=== PATIENT | female | born 1980 | race Caucasian/White ===

== ENCOUNTER 2017-12-01 02:59 | Emergency (ER) | payer OTHER ==
[~2017-12-01] VITALS: Ht 165.1 cm; Wt 74.0 kg
[~2017-12-01 02:59] MED LIST: CEPH500C3 PO; PARO12.5CR PO
[2017-12-01 03:01] VITALS: BP 133/83; PULSE 91; RESP 20; TEMP 97.3; O2SAT 99
[2017-12-01] MEDS ORDERED: BUPR150XL PO (03:09)
[2017-12-01] MEDS ORDERED: NAPR500T2 PO (03:09)
[2017-12-01] MEDS ORDERED: LEXA20TA PO (03:09)
[2017-12-01] MEDS ORDERED: LINA290C PO (03:09)
== END 2017-12-01 05:30 | disposition left against medical advice (07) ==
LOC: NED 02:59
DX: R10.30 Lower abdominal pain, unspecified (principal)
CPT/HCPCS: 99281

== ENCOUNTER 2018-02-13 07:53 | Emergency (ER) | payer OTHER ==
[~2018-02-13] VITALS: Ht 165.1 cm; Wt 75.0 kg
[~2018-02-13 07:53] MED LIST changes: +BUPR150XL PO; +LEXA20TA PO; +LINA290C PO; +NAPR500T2 PO
[2018-02-13 07:55] VITALS: BP 108/65; PULSE 71; RESP 18; TEMP 97.9; O2SAT 99
--- NOTE | 2018-02-13 08:06 | PD ---
HPI Chief Complaint: Flank/Kidney Pain Time Seen by Provider: 07:59 Travel History International Travel<30 days: No Contact w/Intl Traveler<30days: No Traveled to known affect area: No History of Present Illness HPI Patient comes in complaining of left flank pain radiating to her lower abdomen, and so has noted some hematuria as well. Onset over the last 2 days, worsening over the last 3 hours. Patient denies any alleviating or aggravating factors. Patient also denies any associated factors such as fever, rash, frequency/ urgency/diarrhea vomiting Allergy to Demerol Past medical history significant for migraine, IBS constipation, cholecystectomy , ablation [employer], arthritis, depression, and kidney stones PFSH Past Medical History Hx Anticoagulant Therapy: No Arthritis: Yes Depression: Yes Cardiovascular Problems: No Chemotherapy: No Cerebrovascular Accident: No Diabetes: No Gastrointestinal Disorders: Yes (IBS, constipation) Respiratory: No Migraines: Yes ?: Not LMP: 2010 Past Surgical History Cholecystectomy: Yes Gynecologic Surgery: Yes (ablation) Hysterectomy: No Social History Alcohol Use: No Tobacco Use: No Substance Use: No Allergies-Medications (Allergen,Severity, Reaction): Coded Allergies: meperidine (Unverified Allergy, Unknown, 12/01/17) Reported Meds & Prescriptions Reported Meds & Active Scripts Active Keflex (Cephalexin Monohydrate) 500 Mg Cap 500 Mg PO Q8 Reported Wellbutrin Xl 24 HR (Bupropion HCl) 150 Mg Tab 150 Mg PO DAILY Lexapro (Escitalopram Oxalate) 20 Mg Tab 20 Mg PO DAILY Linzess (Linaclotide) 290 Mcg Cap 290 Mcg PO DAILY Naproxen 500 Mg Tab 500 Mg PO BID Paxil 12.5 Mg Tab Cr (Paroxetine HCl) 12.5 Mg Tabcr 12.5 Mg PO DAILY Review of Systems General / Constitutional: No: Fever Eyes: No: Visual changes HENT: No: Headaches Cardiovascular: No: Chest Pain or Discomfort Respiratory: No: Shortness of Breath Gastrointestinal: No: Abdominal Pain Genitourinary: Positive: Flank Pain Musculoskeletal: No: Pain Skin: No Rash Neurologic: No: Weakness Psychiatric: No: Depression Endocrine: No: Polydipsia Hematologic/Lymphatic: No: Easy Bruising Physical Exam Narrative GENERAL: SKIN: Warm and dry. HEAD: Atraumatic. Normocephalic. EYES: Pupils equal and round. No scleral icterus. No injection or drainage. ENT: No nasal bleeding or discharge. Mucous membranes pink and moist. NECK: Trachea midline. No JVD. CARDIOVASCULAR: Regular rate and rhythm. RESPIRATORY: No accessory muscle use. Clear to auscultation. Breath sounds equal bilaterally. GASTROINTESTINAL: Abdomen soft, mild suprapubic tenderness to percussion, nondistended. MUSCULOSKELETAL: Extremities without clubbing, cyanosis, or edema. No obvious deformities. NEUROLOGICAL: Awake and alert. No obvious cranial nerve deficits. Motor grossly within normal limits. Five out of 5 muscle strength in the arms and legs. Normal speech. PSYCHIATRIC: Appropriate mood and affect; insight and judgment normal. Data Data Last Documented VS Vital Signs Date Time Temp Pulse Resp B/P (MAP) Pulse Ox O2 Delivery O2 Flow Rate FiO2 02/13/18 07:55 97.9 71 18 108/65 (79) 99 Orders Orders Complete Blood Count With Diff (02/13/18 08:21) Comprehensive Metabolic Panel (02/13/18 08:21) Urinalysis - C+S If Indicated (02/13/18 08:21) Ecg Monitoring (02/13/18 08:21) Iv Access Insert/Monitor (02/13/18 08:21) Ketorolac Inj (Toradol Inj) (02/13/18 08:30) Sodium Chloride 0.9% Flush (Ns Flush) (02/13/18 08:30) Sodium Chlor 0.9% 1000 Ml Inj (Ns 1000 M (02/13/18 08:21) Ondansetron Odt (Zofran Odt) (02/13/18 08:30) Ct Abd/Pel W/O Iv Contrast (02/13/18 08:22) Levofloxacin (Levaquin) (02/13/18 10:15) Labs Laboratory Tests Test 02/13/18 08:24 02/13/18 08:59 White Blood Count 7.6 TH/MM3 Red Blood Count 5.16 MIL/MM3 Hemoglobin 13.6 GM/DL Hematocrit 40.8 % Mean Corpuscular Volume 79.1 FL Mean Corpuscular Hemoglobin 26.3 PG Mean Corpuscular Hemoglobin Concent 33.2 % Red Cell Distribution Width 15.7 % Platelet Count 279 TH/MM3 Mean Platelet Volume 10.0 FL Neutrophils (%) (Auto) 65.0 % Lymphocytes (%) (Auto) 26.6 % Monocytes (%) (Auto) 6.0 % Eosinophils (%) (Auto) 1.5 % Basophils (%) (Auto) 0.9 % Neutrophils # (Auto) 4.9 TH/MM3 Lymphocytes # (Auto) 2.0 TH/MM3 Monocytes # (Auto) 0.5 TH/MM3 Eosinophils # (Auto) 0.1 TH/MM3 Basophils # (Auto) 0.1 TH/MM3 CBC Comment AUTO DIFF Differential Comment AUTO DIFF CONFIRMED Blood Urea Nitrogen 10 MG/DL Creatinine 1.13 MG/DL Random Glucose 113 MG/DL Total Protein 7.6 GM/DL Albumin 3.4 GM/DL Calcium Level 8.5 MG/DL Alkaline Phosphatase 89 U/L Aspartate Amino Transf (AST/SGOT) 39 U/L Alanine Aminotransferase (ALT/SGPT) 26 U/L Total Bilirubin 0.4 MG/DL Sodium Level 140 MEQ/L Potassium Level 4.2 MEQ/L Chloride Level 112 MEQ/L Carbon Dioxide Level 19.3 MEQ/L Anion Gap 9 MEQ/L Estimat Glomerular Filtration Rate 54 ML/MIN Urine Color YELLOW Urine Turbidity HAZY Urine pH 6.5 Urine Specific [place] 1.022 Urine Protein TRACE mg/dL Urine Glucose (UA) NEG mg/dL Urine Ketones NEG mg/dL Urine Occult Blood MOD Urine Nitrite NEG Urine Bilirubin NEG Urine Urobilinogen LESS THAN 2.0 MG/DL Urine Leukocyte Esterase LARGE Urine RBC 2 /hpf Urine WBC 8 /hpf Urine Squamous Epithelial Cells 4 /hpf Urine Bacteria FEW /hpf Urine Mucus MANY /lpf Microscopic Urinalysis Comment CULT NOT INDICATED MDM Medical Decision Making Medical Screen Exam Complete: Yes Emergency Medical Condition: Yes Medical Record Reviewed: Yes Differential Diagnosis Kidney stones versus right pyelonephritis versus UTI versus a sending cystitis versus colitis versus diverticulitis Narrative Course CBC shows no leukocytosis, no anemia, normal platelet count, no left shift Electrolytes are all within normal limits the exception of creatinine 1.13 with GFR 54, normal liver functions CT abdomen pelvis read by radiologist as no inflammatory changes seen within the abdomen or pelvis, no renal or ureteral calculi identified Diagnosis Primary Impression: Ascending cystitis Patient Instructions: General Instructions, Urinary Tract Infection in Women ( ED) Scripts Ondansetron Odt (Zofran Odt) 4 Mg Tab 4 MG SL Q6HR Y for Nausea/Vomiting, #14 TAB 0 Refills Prov: Isma Ruiz MD 02/13/18 Ketorolac (Ketorolac) 10 Mg Tab 10 MG PO TID Y for Pain Management, #12 TAB 0 Refills Prov: Isma Ruiz MD 02/13/18 Ciprofloxacin (Cipro) 500 Mg Tab 500 MG PO BID for Infection for 10 Days, #20 TAB 0 Refills Prov: Isma Ruiz MD 02/13/18 Disposition: 01 DISCHARGE HOME Condition: Stable Isma Ruiz MD Feb 13, 2018 08:05
[2018-02-13] MEDS ORDERED: SODIUM CHLOR 0.9% 1000 ML INJ 1,000 ML IV ONE (08:21)
[2018-02-13] MEDS ORDERED: KETOROLAC TROMETHAMINE 30 MG/ML (IVP) VIAL IV PUSH ONE (08:30)
[2018-02-13] MEDS ORDERED: SODIUM CHLORIDE 0.9% FLUSH 10 ML FLUSH IVF PRN (08:30)
[2018-02-13] MEDS ORDERED: ONDANSETRON ODT 4 MG TAB PO ONE (08:30)
[2018-02-13 08:35] LABS: AUTOMATED NEUTROPHIL # 4.9 TH/MM3 (1.8-7.7); BASOPHIL # 0.1 TH/MM3 (0-0.2); BASOPHIL % 0.9 % (0.0-2.0); EOSINOPHIL # 0.1 TH/MM3 (0-0.4); EOSINOPHIL % 1.5 % (0.0-4.0); HEMATOCRIT 40.8 % (35.0-46.0); HEMOGLOBIN 13.6 GM/DL (11.6-15.3); LYMPH % 26.6 % (9.0-44.0); MEAN CELL VOLUME 79.1 FL (80.0-100.0); MEAN CORPUSCULAR HEMOGLOBIN 26.3 PG (27.0-34.0); MEAN CORPUSCULAR HGB CONC 33.2 % (32.0-36.0); MONOCYTE # 0.5 TH/MM3 (0-0.9); PLATELET COUNT 279 TH/MM3 (150-450); RED BLOOD COUNT 5.16 MIL/MM3 (4.00-5.30); RED CELL DISTRIBUTION WIDTH 15.7 % (11.6-17.2); WHITE BLOOD COUNT 7.6 TH/MM3 (4.0-11.0)
--- NOTE | 2018-02-13 08:46 | RADRPT ---
EXAM DATE: 02/13/2018 8:42 AM EDT AGE/SEX: 37 years / Female INDICATIONS: Left flank pain for 2 days with history of renal stones. CLINICAL DATA: This is the patient's initial encounter. Patient reports that signs and symptoms have been present for 2 days and indicates a pain score of 5/10. MEDICAL/SURGICAL HISTORY: Renal calculi. Cholecystectomy. endometrial ablation RADIATION DOSE: 7.42 CTDI (mGy) COMPARISON: No prior exams available for comparison. TECHNIQUE: Multiple contiguous axial images were obtained through the abdomen. Images were obtained using multiple row detector helical technique. Using dose reduction techniques, radiation dose was ke pt as low as reasonably achievable to obtain optimal diagnostic quality images. FINDINGS: Lung bases are clear. Osseous structures are intact. Visualized portions of the liver, spleen unremar kable. Adrenals, pancreas, stomach, bilateral kidneys are unremarkable. No hydronephrosis or nephroli thiasis. There are no ureteral calculi seen. The bladder is unremarkable. Uterus and ovaries are unre markable. There are phleboliths in the pelvis. Small bowel, large bowel and appendix are normal. Ther e is no adenopathy or aneurysm. CONCLUSION: 1. There are no inflammatory changes seen within the abdomen or pelvis. 2. No renal or ureteral calculi are identified. Electronically signed by: Dannie Hernández MD 02/13/2018 8:44 AM EDT
[2018-02-13 08:52] LABS: ALKALINE PHOSPHATASE 89 U/L (45-117); BLOOD UREA NITROGEN 10 MG/DL (7-18); TOTAL BILIRUBIN ADULT 0.4 MG/DL (0.2-1.0); TOTAL PROTEIN 7.6 GM/DL (6.4-8.2)
[2018-02-13 08:59] LABS: ALBUMIN 3.4 GM/DL (3.4-5.0); ALT (GPT) 26 U/L (10-53); BICARBONATE 19.3 MEQ/L (21.0-32.0); CALCIUM 8.5 MG/DL (8.5-10.1); CHLORIDE 112 MEQ/L (98-107); CREATININE 1.13 MG/DL (0.50-1.00); GLOMERULAR FILTRATION RATE 54 ML/MIN (>89); GLUCOSE,RANDOM 113 MG/DL (74-106); SODIUM (NA) 140 MEQ/L (136-145)
[2018-02-13 09:00] LABS: AST (GOT) 39 U/L (15-37)
[2018-02-13 09:23] LABS: BACTERIA, URINE FEW /hpf; BILIRUBIN, URINE NEG (NEG); BLOOD, URINE MOD (NEG); GLUCOSE,URINE NEG (NEG); KETONE, URINE NEG (NEG); MUCUS URINE MANY /lpf (OCC); NITRITE,URINE NEG (NEG); PH, URINE 6.5 (5.0-8.5); SQUAMOUS EPITHELIAL CELL URINE 4 /hpf (0-5); URINE COLOR YELLOW (YELLW/STRAW); URINE LEUKOCYTE ESTERASE LARGE (NEG)
[2018-02-13] MEDS ORDERED: LEVOFLOXACIN 750 MG TAB PO ONE (10:15)
[2018-02-13] MEDS ORDERED: KETO10 PO (10:52)
[2018-02-13] MEDS ORDERED: ZOFR4TAB3 SL (10:52)
[2018-02-13] MEDS ORDERED: CIPR-9 PO (10:52)
== END 2018-02-13 11:31 | disposition home or self-care (01) ==
LOC: NEPE 07:53
DX: N30.90 Cystitis, unspecified without hematuria (principal); F32.9 Major depressive disorder, single episode, unspecified; M19.90 Unspecified osteoarthritis, unspecified site; Z87.442 Personal history of urinary calculi; Z88.8 Allergy status to other drugs, medicaments and biological substances; Z79.899 Other long term (current) drug therapy
CPT/HCPCS: 74176; 80053; 81001; 84703; 85025; 96361; 96374; 99284; J1885; J7030

== ENCOUNTER 2018-03-01 12:22 | Emergency (ER) | payer BC, OTHER ==
[~2018-03-01] VITALS: Ht 165.1 cm; Wt 74.0 kg
[~2018-03-01 12:22] MED LIST changes: +CIPR-9 PO; +KETO10 PO; +ZOFR4TAB3 SL
[2018-03-01 12:25] VITALS: BP 119/76; PULSE 76; RESP 18; TEMP 98.1; O2SAT 99
[2018-03-01] MEDS ORDERED: CLOT1CRE TOPICAL (13:34)
[2018-03-01] MEDS ORDERED: BACT800T5 PO (13:34)
--- NOTE | 2018-03-01 13:34 | PD ---
HPI Chief Complaint: Cold / Flu Symptoms Time Seen by Provider: 13:21 Travel History International Travel<30 days: No Contact w/Intl Traveler<30days: No Traveled to known affect area: No History of Present Illness HPI 37-year-old female presents to the emergency department with complaint of a sore throat since Wednesday. Denies lump in throat, difficulty swallowing, unusual drooling. Reports painful swallowing. No known fever. Says she is at the [place] on and off since Wednesday. Reports cough, nasal congestion and right ear pain also. Denies chest tightness, shortness of breath, wheezing. Denies vomiting. Has been taking ibuprofen and Tylenol Cold and flu with some relief of symptoms. Aggravated by swallowing. Symptoms are mild to moderate in severity. Primary care provider is Tanja mahan. Allergies to Demerol. History of arthritis. Has no other medical complaints. No other modifying factors or associated signs and symptoms. PFSH Past Medical History Hx Anticoagulant Therapy: No Arthritis: Yes Depression: Yes Cardiovascular Problems: No Chemotherapy: No Cerebrovascular Accident: No Diabetes: No Gastrointestinal Disorders: Yes (IBS, constipation) Genitourinary: Yes (ovarian cyst) Kidney Stones: Yes Respiratory: No Migraines: Yes ?: Unknown LMP: 7 years ago Past Surgical History Cholecystectomy: Yes Gynecologic Surgery: Yes (ablation) Hysterectomy: No Social History Alcohol Use: No Tobacco Use: No Substance Use: No Allergies-Medications (Allergen,Severity, Reaction): Coded Allergies: meperidine (Unverified Allergy, Unknown, 03/01/18) Reported Meds & Prescriptions Reported Meds & Active Scripts Active Magic Mouthwash Pediatric/Adult Liq (Lidocaine/Diphenhydr/Alum/Mg/Simeth) 60 Ml Susp 5 Ml SWISH-SWAL Q3HR PRN Each 5mL contains: Diphenydramine 4.5mg, Viscous Lidocaine 2% 10mg, Maalox Advanced Regular Strength 2.7ml Diflucan (Fluconazole) 150 Mg Tab 150 Mg PO ONCE Amoxicillin 500 Mg Cap 500 Mg PO BID 10 Days Zofran Odt (Ondansetron Odt) 4 Mg Tab 4 Mg SL Q6HR PRN Ketorolac (Ketorolac Tromethamine) 10 Mg Tab 10 Mg PO TID PRN Cipro (Ciprofloxacin HCl) 500 Mg Tab 500 Mg PO BID 10 Days Keflex (Cephalexin Monohydrate) 500 Mg Cap 500 Mg PO Q8 Reported Wellbutrin Xl 24 HR (Bupropion HCl) 150 Mg Tab 150 Mg PO DAILY Lexapro (Escitalopram Oxalate) 20 Mg Tab 20 Mg PO DAILY Linzess (Linaclotide) 290 Mcg Cap 290 Mcg PO DAILY Naproxen 500 Mg Tab 500 Mg PO BID Paxil 12.5 Mg Tab Cr (Paroxetine HCl) 12.5 Mg Tabcr 12.5 Mg PO DAILY Review of Systems Except as stated in HPI: all other systems reviewed are Neg Physical Exam Narrative GENERAL: Well-nourished, well-developed female patient, in no acute distress; afebrile, nontoxic-appearing SKIN: Warm and dry. No rash. HEAD: Atraumatic. Normocephalic. EYES: Pupils equal and round at 3 mm with brisk reaction. No scleral icterus. No injection or drainage. PERRLA. ENT: Mucosa pink and dry. Pharynx with 2+ tonsils; with erythema, exudate, and edema. No uvular edema. No uvular, palatal, or tonsillar deviation. Airway patent. Voice is hoarse. EARS: Bilateral pinnae and external canals appear within normal limits. Bilateral tympanic membranes without erythema, dullness or perforation.. NECK: Trachea midline. Anterior cervical lymphadenopathy and tenderness. CARDIOVASCULAR: Regular rate and rhythm. No murmur appreciated. RESPIRATORY: No accessory muscle use. Clear to auscultation. Breath sounds equal bilaterally. GASTROINTESTINAL: Flat. MUSCULOSKELETAL: No obvious deformities. No clubbing. No cyanosis. No edema. NEUROLOGICAL: Awake and alert. Oriented 3. No obvious cranial nerve deficits. Motor grossly within normal limits. Normal speech. Moves all extremities. PSYCHIATRIC: Appropriate mood and affect; insight and judgment normal. Data Data Last Documented VS Vital Signs Date Time Temp Pulse Resp B/P (MAP) Pulse Ox O2 Delivery O2 Flow Rate FiO2 03/01/18 12:25 98.1 76 18 119/76 (90) 99 Orders Orders Ed Discharge Order (03/01/18 13:46) [facility] Medical Decision Making Medical Screen Exam Complete: Yes Emergency Medical Condition: Yes Medical Record Reviewed: Yes Differential Diagnosis Strep pharyngitis, exudative pharyngitis, viral illness, less likely peritonsillar abscess Narrative Course 37-year-old female physical exam consistent with exudative pharyngitis. Amoxicillin, Magic mouthwash prescribed for home. Patient states she gets yeast infections from taking antibiotics. Diflucan prescribed for home also. Instructed patient to follow up with primary care provider. Patient verbalizes understanding and agreement with treatment plan. Patient is medically cleared and stable for discharge. Discussed reasons to return to the emergency department. Patient agrees with treatment plan. The patients vital signs are stable and the patient is stable for outpatient follow-up and treatment. Patient discharged home, stable and in no acute distress. Diagnosis Primary Impression: Exudative pharyngitis Referrals: Primary Care Physician Departure Forms: Tests/Procedures, Work Release Enter return to work date: Mar 03, 2018 Additional Instructions: Take Antibiotics as prescribed and complete full course of antibiotics Throw away and change your toothbrush 24 hours after starting antibiotics Get plenty of sleep/rest Rest your voice Drink plenty of fluids to prevent dehydration Use warm saltwater gargles to soothe throat pain Use an air humidifier/turn off ceiling fans Use throat lozenges as needed for sore throat Use ibuprofen or acetaminophen as needed to relieve pain and fever Follow-up with your primary care provider within 2-4 days Return immediately to the emergency department with worsening of symptoms Med/Other Pt SpecificInfo: Prescription(s) given Scripts Ufccjljrtldfnwe-Iobwpqosa-Lzd-Alum-Simeth Liq (Magic Mouthwash Pediatric/Adult Liq) 60 Ml Susp 5 ML SWISH-SWAL Q3HR Y for SORE THROAT, #60 ML 0 Refills Each 5mL contains: Diphenydramine 4.5mg, Viscous Lidocaine 2% 10mg, Maalox Advanced Regular Strength 2.7ml Prov: Briana Maya 03/01/18 Fluconazole (Diflucan) 150 Mg Tab 150 MG PO ONCE for Infection, #1 TAB 1 Refill Prov: Briana Maya 03/01/18 Amoxicillin (Amoxicillin) 500 Mg Cap 500 MG PO BID for Infection for 10 Days, #20 CAP 0 Refills Prov: Briana Maya 03/01/18 Disposition: 01 DISCHARGE HOME Condition: Stable Briana Maya Mar 01, 2018 13:34
[2018-03-01] MEDS ORDERED: MAGICPED SWISH-SWAL (13:45)
[2018-03-01] MEDS ORDERED: DIFL150T PO (13:45)
[2018-03-01] MEDS ORDERED: AMOX500C PO (13:45)
== END 2018-03-01 14:05 | disposition home or self-care (01) ==
LOC: NEPK 12:22
DX: J02.9 Acute pharyngitis, unspecified (principal); R05 Cough; R09.81 Nasal congestion; H92.01 Otalgia, right ear; M19.90 Unspecified osteoarthritis, unspecified site; F32.9 Major depressive disorder, single episode, unspecified; Z87.19 Personal history of other diseases of the digestive system; Z87.42 Personal history of other diseases of the female genital tract; Z87.442 Personal history of urinary calculi; Z86.69 Personal history of other diseases of the nervous system and sense organs
CPT/HCPCS: 99283